=== PATIENT | female | born 1975 | race Caucasian/White ===

== ENCOUNTER 2022-03-30 14:30 | Emergency (ER) | payer OTHER ==
--- OUTSIDE RECORDS SUMMARY | 2022-03-30 14:32 | XMS REPORT | Continuity of Care Document ---
:1975 Author Organization [facility] t Address [address] [place] [address] Care Team Providers Name Role Phone Suly Maldonado Primary Care Physician [phone] Problems This patient has no known problems. Allergies, Adverse Reactions, Alerts Allergy Allergy Status Severity Reaction(s) Onset Inactive Treating Comm ents Source Name Type Date Date Clinician NSAIDs - Propensi Active 2021-04 CLASS ty to 1-17 adverse 00:00: reaction 00 to drug Medications Ordered Filled Start Stop Current Ordering Indication Dosage Frequency Signature Comments Components Source Medication Medication Date Date Medication? Clinician (SIG) Name Name TAKE 2021-04 No CAPSULE 2-12 EVERY 8 00:00: HOURS 00 DAILY. TAKE 1 TAB 2021-04 No AT BEDTIME 2-01 00:00: 00 TAKE 2021-04 No CAPSULE 1-21 EVERY 00:00: MORNING. 00 TAKE 2021-04 No 50 TABLET 1-17 DAILY. 00:00: 00 TAKE 2021-04 No CAPSULE 1-17 ONCE DAILY 00:00: IN THE 00 EVENING. TAKE 1 TAB 2021-04 No PO TID PRN 1-17 FOR ANXIETY 00:00: 00 TAKE 2021-04 No CAPSULE BY 0-06 MOUTH EVERY 00:00: 8 HOURS FOR 00 10 DAYS Vital Signs Vital Name Observation Time Observation Value Comments Source BP Systolic 2022-03-23 15:32:00 134 mm[Hg] BP Diastolic 2022-03-23 15:32:00 85 mm[Hg] Weight Measured 2022-03-23 15:32:00 264.00 pounds Height Measured 2022-03-23 15:32:00 68.00 inches Body Temperature 2022-03-23 15:32:00 98.30 degrees Heart Rate 2022-03-23 15:32:00 94.00 /min Respiratory Rate 2022-03-23 15:32:00 18.00 /min BP Systolic 2022-02-26 13:23:00 150 mm[Hg] BP Diastolic 2022-02-26 13:23:00 87 mm[Hg] Weight Measured 2022-02-26 13:23:00 259.20 pounds Height Measured 2022-02-26 13:23:00 68.00 inches Body Temperature 2022-02-26 13:23:00 98.10 degrees Heart Rate 2022-02-26 13:23:00 99.00 /min Respiratory Rate 2022-02-26 13:23:00 Procedures This patient has no known procedures. Plan of Care Planned Activity Planned Date Details Comments Source Goal Plan of Care Note [code = 48267-3] Goal Plan of Care Note [code = 03042-6] Goal Plan of Care Note [code = 88149-1] Goal Plan of Care Note [code = 36076-1] Goal Plan of Care Note [code = 31223-2] Goal Plan of Care Note [code = 12221-7] Goal Plan of Care Note [code = 47507-0] Goal Plan of Care Note [code = 72882-8] Encounters Start End Encounter Admission Attending Care Care Encounter Source Date/Time Date/Time Type Type Clinicians Facility Department ID 2022-03-23 2022-03-23 Outpatient [facility] Jose 15:17:41 15:17:41 F Tacos 2022-03-23 2022-03-23 Outpatient [id number] 00:00:00 00:00:00 Visit [id number] 2022-03-17 Outpatient [facility] Jose 08:57:25 08:57:25 F Tacos 2022-03-12 2022-03-12 Outpatient [facility] [id number] Jose 09:46:16 09:46:16 [id number] F Tacos Results Test Description Test Time Test Comments Results Result Comments Source CBC W/AUTO DIFF 2022-03-13 00:00:00 Test Item Value Reference Range Interpretation Comme nts WBC (test code = 1001) 9.1 K/UL RBC (test code = 1002) 5.46 M/UL HEMOGLOBIN (test code = 1003) 15.6 G/DL HEMATOCRIT (test code = 1004) 46.1 % MCV (test code = 1005) 84.4 fL MCH (test code = 1006) 28.6 PG MCHC (test code = 1007) 33.8 G/DL RDW (test code = 1038) 13.8 % NEUTROPHILS (test code = 1008) 65.7 % LYMPHOCYTES (test code = 1010) 24.9 % MONOCYTES (test code = 1011) 7.2 % EOSINOPHILS (test code = 1012) 1.5 % BASOPHILS (test code = 1013) 0.4 % IMMATURE GRANULOCYTES (test code = 1036) 0.3 % NUCLEATED RBCS (test code = 1065) 0.0 /100WBC'S PLATELET COUNT (test code = 1015) 355 K/UL ABSOLUTE NEUTROPHILS (test code = 1066) 5.94 K/UL ABSOLUTE LYMPHOCYTES (test code = 1067) 2.26 K/UL ABSOLUTE MONOCYTES (test code = 1068) 0.65 K/UL ABSOLUTE EOSINOPHILS (test code = 1040) 0.14 K/UL ABSOLUTE BASOPHILS (test code = 1069) 0.04 K/UL ABS IMMATURE GRANULOCYTES (test code = 1020) 0.03 K/UL ABS NUCLEATED RBCS (test code = 69699) 0.00 K/UL CBC W/AUTO [id number] 00:00:00 Test Item Value Reference Range Interpretation Comments WBC (test code = 1001) 9.1 K/UL RBC (test code = 1002) 5.46 M/UL HEMOGLOBIN (test code = 1003) 15.6 G/DL HEMATOCRIT (test code = 1004) 46.1 % MCV (test code = 1005) 84.4 fL MCH (test code = 1006) 28.6 PG MCHC (test code = 1007) 33.8 G/DL RDW (test code = 1038) 13.8 % NEUTROPHILS (test code = 1008) 65.7 % LYMPHOCYTES (test code = 1010) 24.9 % MONOCYTES (test code = 1011) 7.2 % EOSINOPHILS (test code = 1012) 1.5 % BASOPHILS (test code = 1013) 0.4 % IMMATURE GRANULOCYTES (test 0.3 % code = 1036) NUCLEATED RBCS (test code = 0.0 /100WBC'S 1065) PLATELET COUNT (test code = 355 K/UL 1015) ABSOLUTE NEUTROPHILS (test code 5.94 K/UL = 1066) ABSOLUTE LYMPHOCYTES (test code 2.26 K/UL = 1067) ABSOLUTE MONOCYTES (test code = 0.65 K/UL 1068) ABSOLUTE EOSINOPHILS (test code 0.14 K/UL = 1040) ABSOLUTE BASOPHILS (test code = 0.04 K/UL 1069) ABS IMMATURE GRANULOCYTES (test 0.03 K/UL code = 1020) ABS NUCLEATED RBCS (test code = 0.00 K/UL 51259) CBC W/AUTO [id number] 00:00:00 Test Item Value Reference Range Interpretation Comments WBC (test code = 1001) 9.1 K/UL RBC (test code = 1002) 5.46 M/UL HEMOGLOBIN (test code = 1003) 15.6 G/DL HEMATOCRIT (test code = 1004) 46.1 % MCV (test code = 1005) 84.4 fL MCH (test code = 1006) 28.6 PG MCHC (test code = 1007) 33.8 G/DL RDW (test code = 1038) 13.8 % NEUTROPHILS (test code = 1008) 65.7 % LYMPHOCYTES (test code = 1010) 24.9 % MONOCYTES (test code = 1011) 7.2 % EOSINOPHILS (test code = 1012) 1.5 % BASOPHILS (test code = 1013) 0.4 % IMMATURE GRANULOCYTES (test 0.3 % code = 1036) NUCLEATED RBCS (test code = 0.0 /100WBC'S 1065) PLATELET COUNT (test code = 355 K/UL 1015) ABSOLUTE NEUTROPHILS (test code 5.94 K/UL = 1066) ABSOLUTE LYMPHOCYTES (test code 2.26 K/UL = 1067) ABSOLUTE MONOCYTES (test code = 0.65 K/UL 1068) ABSOLUTE EOSINOPHILS (test code 0.14 K/UL = 1040) ABSOLUTE BASOPHILS (test code = 0.04 K/UL 1069) ABS IMMATURE GRANULOCYTES (test 0.03 K/UL code = 1020) ABS NUCLEATED RBCS (test code = 0.00 K/UL 19238) HEMOGLOBIN [id number] 00:00:00 Test Item Value Reference Range Interpretation Comments HEMOGLOBIN A1c (test code = 90621) 5.5 % HEMOGLOBIN [id number] 00:00:00 Test Item Value Reference Range Interpretation Comments HEMOGLOBIN A1c (test code = 57063) 5.5 % HEMOGLOBIN [id number] 00:00:00 Test Item Value Reference Range Interpretation Comments HEMOGLOBIN A1c (test code = 92862) 5.5 % LIPID [id number] 00:00:00 Test Item Value Reference Range Interpretation Comments CHOLESTEROL (test code = 2210) 262 MG/DL TRIGLYCERIDES (test code = 2232) 196 MG/DL HDL CHOLESTEROL (test code = 2220) 36 MG/DL CALC LDL CHOL (test code = 2237) 188 MG/DL RISK RATIO LDL/HDL (test code = 5.22 RATIO 2238) LIPID [id number] 00:00:00 Test Item Value Reference Range Interpretation Comments CHOLESTEROL (test code = 2210) 262 MG/DL TRIGLYCERIDES (test code = 2232) 196 MG/DL HDL CHOLESTEROL (test code = 2220) 36 MG/DL CALC LDL CHOL (test code = 2237) 188 MG/DL RISK RATIO LDL/HDL (test code = 5.22 RATIO 2238) COMPREHENSIVE METABOLIC [id number] 00:00:00 Test Item Value Reference Range Interpretation Comments GLUCOSE (test code = 2217) 92 MG/DL BUN (test code = 2208) 11 MG/DL CREATININE (test code = 2214) 0.86 MG/DL eGFR (2020 CKD-EPI) (test code 85 ML/MIN/1.73 = 98170) CALC BUN/CREAT (test code = 13 RATIO 2235) SODIUM (test code = 2231) 141 MEQ/L POTASSIUM (test code = 2228) 4.4 MEQ/L CHLORIDE (test code = 2215) 107 MEQ/L CARBON DIOXIDE (test code = 22 MEQ/L 2205) CALCIUM (test code = 2209) 10.0 MG/DL PROTEIN, TOTAL (test code = 7.2 G/DL 2228) ALBUMIN (test code = 2201) 4.3 G/DL CALC GLOBULIN (test code = 2.9 G/DL 2239) CALC A/G RATIO (test code = 1.5 RATIO 2234) BILIRUBIN, TOTAL (test code = 0.3 MG/DL 2206) ALKALINE PHOSPHATASE (test 101 U/L code = 2204) AST (test code = 2218) 16 U/L ALT (test code = 2219) 16 U/L COMPREHENSIVE METABOLIC [id number] 00:00:00 Test Item Value Reference Range Interpretation Comments GLUCOSE (test code = 2217) 92 MG/DL BUN (test code = 2208) 11 MG/DL CREATININE (test code = 2214) 0.86 MG/DL eGFR (2020 CKD-EPI) (test code 85 ML/MIN/1.73 = 43130) CALC BUN/CREAT (test code = 13 RATIO 2235) SODIUM (test code = 2231) 141 MEQ/L POTASSIUM (test code = 2228) 4.4 MEQ/L CHLORIDE (test code = 2215) 107 MEQ/L CARBON DIOXIDE (test code = 22 MEQ/L 2205) CALCIUM (test code = 2209) 10.0 MG/DL PROTEIN, TOTAL (test code = 7.2 G/DL 2228) ALBUMIN (test code = 2201) 4.3 G/DL CALC GLOBULIN (test code = 2.9 G/DL 224) CALC A/G RATIO (test code = 1.5 RATIO 4) BILIRUBIN, TOTAL (test code = 0.3 MG/DL 2206) ALKALINE PHOSPHATASE (test 101 U/L code = 2204) AST (test code = 2218) 16 U/L ALT (test code = 2219) 16 U/L TSH, THIRD [id number] 00:00:00 Test Item Value Reference Range Interpretation Comments TSH, THIRD GENERATION (test code 1.150 UIU/ML = 2821) TSH, THIRD [id number] 00:00:00 Test Item Value Reference Range Interpretation Comments TSH, THIRD GENERATION (test code 1.150 UIU/ML = 2821) TSH, THIRD [id number] 00:00:00 Test Item Value Reference Range Interpretation Comments TSH, THIRD GENERATION (test code 1.150 UIU/ML = 2821)
[2022-03-30 15:03] LABS: Absolute Lymphocytes (CBC) 3.1 K/uL (0.7-4.9); Hematocrit 41.2 % (36.0-45.0); Lymphocytes % 27.8 % (15.3-44.8); MCV 84.7 fL (80-100); MPV 6.8 fL (7.6-11.3); RBC Red Blood Cell Count 4.86 M/uL (3.86-4.86)
[2022-03-30 15:23] LABS: Potassium 4.1 mmol/L (3.5-5.1)
[2022-03-30 15:39] LABS: SARS-COV-2 RT PCR NEGATIVE (NEGATIVE)
--- NOTE | 2022-03-30 15:54 | RAD REPORT ---
EXAM DESCRIPTION: Tatyana Single View03/30/2022 3:21 pm CLINICAL HISTORY: Cough COMPARISON: none FINDINGS: The left base is hazy. The remainder of the lungs appear clear of acute infiltrate. The he art is normal size IMPRESSION: Left base is hazy probably secondary to overlying soft tissue. An infiltrate can have th is appearance but is probably less likely. PA and lateral chest series recommended
--- NOTE | 2022-03-30 16:43 | RAD REPORT ---
EXAM DESCRIPTION: Tatyana Pa And Lat (2 Views)03/30/2022 4:31 pm CLINICAL HISTORY: Cough COMPARISON: March 30, 2022 FINDINGS: Left lung base is clear. The lungs appear clear of acute infiltrate. The heart is normal size IMPRESSION: No acute abnormalities displayed
--- NOTE | 2022-03-30 17:25 | EDPHYS ---
Physician Documentation [facility] Name: Dayami Pisano Age: 46 yrs Sex: Female : 1975 Arrival Date: 03/30/2022 Time: 14:32 Bed 20 Private MD: ED Physician Minesh Norman HPI: 03/30 18:45 This 46 yrs old Female presents to ER via Ambulatory with complaints of Cough, Chest kb Pain, Arm Pain. 18:45 The patient or guardian reports cough, that is intermittent, described as moderate, flu kb symptoms, arthralgias, myalgias. Onset: The symptoms/episode began/occurred 3 week(s) ago. Severity of symptoms: At their worst the symptoms were moderate, in the emergency department the symptoms are unchanged. Modifying factors: The symptoms are alleviated by nothing, the symptoms are aggravated by nothing. Associated signs and symptoms: Pertinent positives: chest pain, rhinorrhea. The patient has not experienced similar symptoms in the past. The patient has been recently seen by a physician: the patient's primary care provider, with similar presenting complaints, given steroids, but the patient's symptoms have persisted. 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 - Social history:: Smoking status: Patient reports the use of cigarette tobacco products, smokes one-half pack cigarettes per day. ROS: 18:44 Abdomen/GI: Negative for abdominal pain, nausea, vomiting, diarrhea, and constipation. kb 18:44 Constitutional: Positive for body aches, malaise. 18:44 ENT: Positive for sinus congestion. 18:44 Cardiovascular: Positive for chest pain. 18:44 Respiratory: Positive for cough, Negative for dyspnea on exertion, hemoptysis, orthopnea, pleurisy, shortness of breath, sputum production, wheezing. 18:44 All other systems are negative. Exam: 14:55 Constitutional: This is a well developed, well nourished patient who is awake, alert, kb and in no acute distress. Head/Face: Normocephalic, atraumatic. ENT: Moist Mucous membranes Cardiovascular: Regular rate and rhythm with a normal S1 and S2. No gallops, murmurs, or rubs. No pulse deficits. Respiratory: Respirations even and unlabored. No increased work of breathing. Talking in full sentences Abdomen/GI: Soft, non-tender. No distention Skin: Warm, dry with normal turgor. Normal color. MS/ Extremity: Pulses equal, no cyanosis. Neurovascular intact. Full, normal range of motion. Neuro: Awake and alert, GCS 15, oriented to person, place, time, and situation. Moves all extremities. Normal gait. Psych: Awake, alert, with orientation to person, place and time. Behavior, mood, and affect are within normal limits. 14:55 ECG was reviewed by the Attending Physician. Vital Signs: 14:40 BP 144 / 91; Pulse 96; Resp 18; Temp 98.6; Pulse Ox 98% on R/A; Weight 117.93 kg; jh5 Height 5 ft. 8 in. (172.72 cm); Pain 5/10; 15:45 BP 142 / 81; Pulse 84; Resp 16; Pulse Ox 100% on R/A; hb 14:40 Body Mass Index 39.53 (117.93 kg, 172.72 cm) 5 MDM: 14:38 Patient medically screened. kb 16:57 Data reviewed: vital signs, nurses notes. Data interpreted: Pulse oximetry: on room air kb is 100 %. Interpretation: normal. Counseling: I had a detailed discussion with the patient and/or guardian regarding: the historical points, exam findings, and any diagnostic results supporting the discharge/admit diagnosis, lab results, radiology results, the need for outpatient follow up, a family practitioner, to return to the emergency department if symptoms worsen or persist or if there are any questions or concerns that arise at home. 18:43 ED course: Pt has history of COPD and asthma, as well as smokes cigarettes. Will kb prescribe antibiotics. . 03/30 14:44 Order name: CBC with Diff; Complete Time: 15:09 kb 03/30 14:44 Order name: BMP; Complete Time: 15:29 kb 03/30 14:44 Order name: Troponin High Sensitivity; Complete Time: 15:29 kb 03/30 14:44 Order name: Chest Single View XRAY; Complete Time: 16:06 kb 03/30 14:44 Order name: COVID-19/FLU A+B; Complete Time: 15:43 kb 03/30 14:55 Order name: D-Dimer; Complete Time: 15:18 kb 03/30 14:44 Order name: IV Start; Complete Time: 14:53 kb 03/30 14:44 Order name: EKG; Complete Time: 14:44 kb 03/30 14:44 Order name: EKG - Nurse/Tech; Complete Time: 14:53 kb 03/30 16:07 Order name: Chest Pa And Lat (2 Views) XRAY; Complete Time: 16:57 kb EC:55 Rate is 102 beats/min. Rhythm is regular. QRS [place] is Normal. NC interval is normal at kb 146 msec. QRS interval is normal at 92 msec. QT interval is normal at 461 msec. Administered Medications: No medications were administered Disposition: 22:03 Co-signature as Attending Physician, Minesh MORALES was immediately available on-site ms3 in the Emergency Department for consultation in the care of the patient. . Disposition Summary: 03/30/22 17:25 Discharge Ordered Location: Home kb Condition: Stable kb Diagnosis - Cough kb - Fever, unspecified kb Followup: kb - With: Emergency Department - When: As needed - Reason: Worsening of condition Followup: kb - With: Private Physician - When: 2 - 3 days - Reason: Recheck today's complaints, Continuance of care, Re-evaluation by your physician Discharge Instructions: - Discharge Summary Sheet kb - Acute Bronchitis, Adult, [id number] kb - Cough, Adult, [id number]-[id number] kb Forms: - Medication Reconciliation Form kb - Thank You Letter kb - Antibiotic Education kb - Prescription Opioid Use kb Prescriptions: - Zithromax 500 mg Oral Tablet - take 1 tablet by ORAL route once daily for 5 days; 5 tablet; Refills: 0, kb Product Selection Permitted Signatures: Dispatcher [employer] Leah Pandya FNP-C FNP-Minesh Meraz DO DO ms3 Yodit Alvarado RN RN 5 Corrections: (The following items were deleted from the chart) 14:44 14:43 Allergies: No Known Allergies; [place] [id number] 18:45 18:44 ENT: Positive for sinus congestion, kb kb
--- NOTE | 2022-03-30 17:25 | ER ---
Nurse's Notes [facility] Name: Dayami Pisano Age: 46 yrs Sex: Female : 1975 Arrival Date: 03/30/2022 Time: 14:32 Bed 20 Private MD: Diagnosis: Cough;Fever, unspecified Presentation: 03/30 14:40 Chief complaint: Patient states: sick x3 weeks with cough, tickle in throat, body aches jh5 all over my joints. I have coughing fits. My arms have been so heavy and today I am having chest pains. I have been to the [facility], yogesh been on prednisone for 7 days and I am not any better. Coronavirus screen: Vaccine status: Patient reports receiving the 1st dose of the Covid vaccine. Client denies travel out of the [place] in the last 14 days. Ebola Screen: Patient negative for fever greater than or equal to 101.5 degrees Fahrenheit, and additional compatible Ebola Virus Disease symptoms Patient denies exposure to infectious person. Patient denies travel to an Ebola-affected area in the 21 days before illness onset. Initial Sepsis Screen: Does the patient meet any 2 criteria? No. Patient's initial sepsis screen is negative. Does the patient have a suspected source of infection? No. Patient's initial sepsis screen is negative. Risk Assessment: Do you want to hurt yourself or someone else? Patient reports no desire to harm self or others. Onset of symptoms was March 30, 2022. 14:40 Method Of Arrival: Ambulatory [facility] 14:40 Acuity: VERONICA 3 jh5 Triage Assessment: 14:43 General: Appears uncomfortable, obese, unkempt, Behavior is calm, cooperative, jh5 appropriate for age. Pain: Complains of pain in chest. Cardiovascular: Reports chest pain. 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 - Social history:: Smoking status: Patient reports the use of cigarette tobacco products, smokes one-half pack cigarettes per day. Screenin:57 [facility] ED Fall Risk Assessment (Adult) Score/Fall Risk Level 0 - 2 = Low Risk. Abuse hb screen: Denies threats or abuse. Denies injuries from another. Nutritional screening: No deficits noted. Tuberculosis screening: No symptoms or risk factors identified. Fall Risk Total Mann Fall Scale indicates No Risk (0-24 pts). 14:57 [facility] ED Fall Risk Assessment (Adult) Score/Fall Risk Level 0 - 2 = Low Risk hb Oriented to surroundings, Maintained a safe environment. 17:35 Humpty Dumpty Scale Fall Assessment Tool (age< 18yrs) Fall Risk Score/ Level. em6 Assessment: 15:10 General: Appears in no apparent distress. Behavior is calm, cooperative. Pain: Pain hb currently is 5 out of 10 on a pain scale. Neuro: Level of Consciousness is awake, alert, obeys commands, Oriented to person, place, time, situation. Cardiovascular: Patient's skin is warm and dry. Respiratory: Respiratory effort is even, unlabored, Respiratory pattern is regular, symmetrical. GI: No signs and/or symptoms were reported involving the gastrointestinal system. : No signs and/or symptoms were reported regarding the genitourinary system. EENT: No signs and/or symptoms were reported regarding the EENT system. Derm: Skin is pink, warm \T\ dry. Musculoskeletal: No signs and/or symptoms reported regarding the musculoskeletal system. 15:56 Reassessment: Patient appears in no apparent distress at this time. Patient and/or hb family updated on plan of care and expected duration. Pain level reassessed. Patient is alert, oriented x 3, equal unlabored respirations, skin warm/dry/pink. 16:10 Reassessment: Patient appears in no apparent distress at this time. Patient and/or em6 family updated on plan of care and expected duration. Pain level reassessed. Patient is alert, oriented x 3, equal unlabored respirations, skin warm/dry/pink. 17:10 Reassessment: Patient appears in no apparent distress at this time. Patient and/or em6 family updated on plan of care and expected duration. Pain level reassessed. Patient is alert, oriented x 3, equal unlabored respirations, skin warm/dry/pink. Vital Signs: 14:40 BP 144 / 91; Pulse 96; Resp 18; Temp 98.6; Pulse Ox 98% on R/A; Weight 117.93 kg; [facility] Height 5 ft. 8 in. (172.72 cm); Pain 5/10; 15:45 BP 142 / 81; Pulse 84; Resp 16; Pulse Ox 100% on R/A; hb 14:40 Body Mass Index 39.53 (117.93 kg, 172.72 cm) [facility] ED Course: 14:32 Patient arrived in ED. as 14:32 Leah Orellana FNP-C [facility]. kb 14:32 Minesh Norman DO is Attending Physician. kb 14:43 Triage completed. [facility] 14:43 Arm band placed on right wrist. [facility] 14:53 COVID-19/FLU A+B Sent. [facility] 14:53 Troponin High Sensitivity Sent. [facility] 14:53 BMP Sent. [facility] 14:54 CBC with Diff Sent. [facility] 14:57 Alina Edmond, RN is Primary Nurse. hb 15:21 Patient has correct armband on for positive identification. hb 15:23 Chest Single View XRAY In Process Unspecified. EDMS 16:33 Chest Pa And Lat (2 Views) XRAY In Process Unspecified. EDMS 17:35 No provider procedures requiring assistance completed. IV discontinued, intact, em6 bleeding controlled, No redness/swelling at site. Pressure dressing applied. Administered Medications: No medications were administered Medication: 15:21 VIS not applicable for this client. hb Outcome: 17:25 Discharge ordered by MD. kb 17:35 Discharged to home ambulatory. em6 17:35 Condition: stable 17:35 Discharge instructions given to patient, Instructed on discharge instructions, follow up and referral plans. medication usage, Demonstrated understanding of instructions, follow-up care, medications, Prescriptions given X 1. 17:35 Patient left the ED. em6 Signatures: Dispatcher [employer] EDKY Leah Orellana FNP-C FNP-Jelly Liang as Alina Edmond, RN RN hb Yodit Alvarado RN RN [facility] Gauri Sanchez RN RN em6 Corrections: (The following items were deleted from the chart) 14:44 14:43 Allergies: No Known Allergies; [place] [id number] 15:57 13:45 BP 138 / 86; Pulse 84bpm; Resp 16bpm; Pulse Ox 100% RA; hb hb
[2022-03-30 17:50] VITALS: TEMP 98.6
[2022-03-30 17:51] VITALS: BP 142/81; O2SAT 100
--- NOTE | 2022-04-01 14:01 | EKG ---
Test Date: 2022-03-30 Test Time: 14:47:00 Military Technician: JR Velez MEASUREMENT RESULTS: Intervals: Rate: 102 [place]: 146 QRSD: 92 QT: 354 QTc: 461 [place]: P: 57 [place]: 146 QRS: 54 T: 53 INTERPRETIVE STATEMENTS: Sinus tachycardia Incomplete right bundle branch block Borderline ECG No previous ECG available for comparison Electronically Signed On 04-01-22 13:59:51 GEOGRAPHIC INFORMATION SCIENTIST by Adithya Santana
== END 2022-03-30 17:35 | disposition home or self-care (01) ==
LOC: ER 14:30
DX: R05.9 Cough, unspecified (principal); R50.9 Fever, unspecified; R07.9 Chest pain, unspecified; F17.210 Nicotine dependence, cigarettes, uncomplicated; Z88.0 Allergy status to penicillin; Z88.1 Allergy status to other antibiotic agents; Z88.5 Allergy status to narcotic agent; Z88.6 Allergy status to analgesic agent; Z20.822 Contact with and (suspected) exposure to COVID-19
CPT/HCPCS: 93005; 85025; 80048; 36415; 85379; 84484; 0240U; 71045; 71046; 99283

== ENCOUNTER 2022-08-26 13:31 | Emergency (ER) | payer OTHER ==
--- OUTSIDE RECORDS SUMMARY | 2022-08-26 13:35 | XMS REPORT | Continuity of Care Document ---
:1975 Author Organization [facility] t Address [address] [facility] 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 [...] TAKE 1 TAB 2021-04 No AT BEDTIME 2- 00:00: 00 TAKE 2021-04 No CAPSULE 1-21 [...] Goal Plan of Care Note [code = 72066-9] Goal Plan of Care Note [code = 69588-1] Goal Plan of Care Note [code = 81949-0] Goal Plan of Care Note [code = 62336-3] Goal Plan of Care Note [code = 37983-9] Goal Plan of Care Note [code = 73169-8] Goal Plan of Care Note [code = 07654-5] Goal Plan of Care Note [code = 56706-2] Encounters Start End Encounter Admission Attending Care Care Encounter Source Date/Time Date/Time Type Type Clinicians Facility Department ID 2022-07-15 2022-07-15 Outpatient GRACIE GODDARD [id number] Gracie 08:30:00 08:30:00 KAZ garcia 2022-04-23 2022-04-23 Outpatient SFA SFA [id number] Jose 11:21:09 11:21:09 [id number] F Tacos 2022-03-23 2022-03-23 Outpatient SFA SFA [id number] Jose 15:17:41 15:17:41 [id number] F Tacos 2022-03-23 2022-03-23 Outpatient [id number] 00:00:00 00:00:00 Visit ccd6-43d4 [id number] 2320-12-06 2022-03-17 Outpatient [facility] [id number] Jose 08:57:25 08:57:25 [id number] F Tacos 2022-03-12 2022-03-12 Outpatient [facility] [id number] Jose 09:46:16 09:46:16 [id number] F Tacos Results Test Description Test Time [...] K/UL ABS NUCLEATED RBCS (test code = 68464) 0.00 K/UL CBC W/AUTO [id number] 00:00:00 Test Item Value Reference Range Interpretation [...] NUCLEATED RBCS (test code = 0.00 K/UL 81440) CBC W/AUTO [id number] 00:00:00 Test Item Value Reference Range Interpretation [...] NUCLEATED RBCS (test code = 0.00 K/UL 62684) HEMOGLOBIN [id number] 00:00:00 Test Item Value Reference Range Interpretation Comments HEMOGLOBIN A1c (test code = 01521) 5.5 % HEMOGLOBIN [id number] 00:00:00 Test Item Value Reference Range Interpretation Comments HEMOGLOBIN A1c (test code = 83552) 5.5 % HEMOGLOBIN [id number] 00:00:00 Test Item Value Reference Range Interpretation Comments HEMOGLOBIN A1c (test code = 16175) 5.5 % LIPID [id number] 00:00:00 Test Item Value Reference Range Interpretation Comments CHOLESTEROL (test code = 2210) 262 MG/DL TRIGLYCERIDES (test code = 2232) 196 MG/DL HDL CHOLESTEROL (test code = 2220) 36 MG/DL CALC LDL CHOL (test code = 2237) 188 MG/DL RISK RATIO LDL/HDL (test code = 5.22 RATIO 2238) LIPID [id number] 00:00:00 Test Item Value Reference Range Interpretation Comments CHOLESTEROL (test code = 2210) 262 MG/DL TRIGLYCERIDES (test code = 2232) 196 MG/DL HDL CHOLESTEROL (test code = 2220) 36 MG/DL CALC LDL CHOL (test code = 2237) 188 MG/DL RISK RATIO LDL/HDL (test code = 5.22 RATIO 2238) COMPREHENSIVE METABOLIC [id number] 00:00:00 Test Item Value Reference Range Interpretation Comments GLUCOSE (test code = 2217) 92 MG/DL BUN (test code = 2208) 11 MG/DL CREATININE (test code = 2214) 0.86 MG/DL eGFR (2020 CKD-EPI) (test code 85 ML/MIN/1.73 = 09075) CALC BUN/CREAT (test code = 13 RATIO 2235) SODIUM (test code = 2231) 141 MEQ/L POTASSIUM (test code = 2228) 4.4 MEQ/L CHLORIDE (test code = 2215) 107 MEQ/L CARBON DIOXIDE (test code = 22 MEQ/L 2206) CALCIUM (test code = 2209) 10.0 MG/DL PROTEIN, TOTAL (test code = 7.2 G/DL 2228) ALBUMIN (test code = 2201) 4.3 G/DL CALC GLOBULIN (test code = 2.9 G/DL 2240) CALC A/G RATIO (test code = 1.5 RATIO 2234) BILIRUBIN, TOTAL (test code = 0.3 MG/DL 2206) ALKALINE PHOSPHATASE (test 101 U/L code = 2204) AST (test code = 2218) 16 U/L ALT (test code = 2219) 16 U/L COMPREHENSIVE METABOLIC [id number] 00:00:00 Test Item Value Reference Range Interpretation Comments GLUCOSE (test code = 7) 92 MG/DL BUN (test code = 2208) 11 MG/DL CREATININE (test code = 2214) 0.86 MG/DL eGFR (2020 CKD-EPI) (test code 85 ML/MIN/1.73 = 06224) CALC BUN/CREAT (test code = 13 RATIO [...] CALC GLOBULIN (test code = 2.9 G/DL 2240) CALC A/G RATIO (test code = 1.5 RATIO 2234) BILIRUBIN, TOTAL (test code = 0.3 MG/DL 2206) ALKALINE PHOSPHATASE (test 101 U/L code = 2204) AST (test code = 2218) 16 U/L ALT (test code = 2219) 16 U/L TSH, THIRD [id number] 00:00:00 Test Item Value Reference Range Interpretation Comments TSH, THIRD GENERATION (test code 1.150 UIU/ML = 2821) TSH, THIRD [id number] 00:00:00 Test Item Value Reference Range Interpretation Comments TSH, THIRD GENERATION (test code 1.150 UIU/ML = 2821) TSH, THIRD [id number] 00:00:00 Test Item Value Reference Range Interpretation Comments TSH, THIRD GENERATION (test code 1.150 UIU/ML = 2821)
--- NOTE | 2022-08-26 14:57 | RAD REPORT ---
EXAM DESCRIPTION: RAD - Shoulder Left 2 View - 08/26/2022 2:27 pm CLINICAL HISTORY: PAIN COMPARISON: Chest Single View dated 03/15/2022; Chest Pa And Lat (2 Views) dated 01/23/2021; Chest Pa And Lat (2 Views) dated 05/03/2019; Chest Pa And Lat (2 Views) dated 04/14/2019No comparisons TECHNIQUE: Internal and external rotation views of the left shoulder were obtained. FINDINGS: There is no fracture or dislocation. AC joint is normal in appearance. Curvilinear contour of the glenoid cavity, could relate to moderate degenerative changes, given the projection which cristobal ges were acquired. This is not well assessed. No other acute or suspicious findings. IMPRESSION: No findings of an acute osseus abnormality. Nonspecific curvilinear contour of the lumen cavity, could relate to degenerative changes, not well evaluated.
[2022-08-26] MEDS ORDERED: DIAZEPAM 5 MG TABLET ONE (15:13)
[2022-08-26] MEDS ORDERED: KETOROLAC 30 MG/ML INJ ONE (15:13)
[2022-08-26] MEDS ORDERED: dexAMETHasone 10 MG/ML VIAL ONE (15:13)
--- NOTE | 2022-08-26 15:41 | EDPHYS ---
Physician Documentation [facility] Name: Dayami Pisano Age: 46 yrs Sex: Female : 1975 Arrival Date: 08/26/2022 Time: 13:31 Bed 9 Private MD: HOME Physician Andrea Salas STATISTICAL ANALYST: 08/26 15:30 LMP N/A - control method mb9 Historical: - Allergies: 14:01 Augmentin; nj1 14:01 Bactrim; nj1 14:01 codeine sulfate; nj1 14:01 Ibuprofen; nj1 14:01 Morphine; nj1 14:01 NSAIDS; nj1 14:01 PENICILLINS; nj1 - PMHx: 14:01 Hypertensive disorder; Endometrosis; Sleep apnea; Depressive disorder; Bipolar disorder;nj1 14:03 PTSD; nj1 - PSHx: 14:01 Hysterectomy; nj1 - Immunization history:: Client reports receiving the 1st dose of the Covid vaccine. - Social history:: Smoking status: Patient reports the use of cigarette tobacco products, smokes one pack cigarettes per day. Vital Signs: 13:58 BP 141 / 97; Pulse 103; Resp 18; Temp 97.9(TE); Pulse Ox 98% ; Weight 113.4 kg; Height nj1 5 ft. 7 in. ; Pain 10/10; 15:48 BP 138 / 89; Pulse 98; Resp 16; Pulse Ox 99% on R/A; mb9 13:58 Body Mass Index 39.16 (113.40 kg, 170.18 cm) [facility] 13:58 Pain Scale: Adult [facility] MDM: 13:55 Patient medically screened. [facility] 08/26 13:55 Order name: Shoulder Left (2 View) XRAY; Complete Time: 15:04 [facility] 08/26 15:28 Order name: Sling; Complete Time: 15:30 [facility] Administered Medications: 15:12 Drug: Ketorolac IM 30 mg Route: IM; Site: right gluteus; mb9 15:28 Follow up: Response: No adverse reaction mb9 15:12 Drug: Dexamethasone IM 10 mg Route: IM; Site: left gluteus; mb9 15:28 Follow up: Response: No adverse reaction 9 15:12 Drug: Diazepam PO 5 mg Route: PO; mb9 15:28 Follow up: Response: No adverse reaction mb9 Disposition Summary: 08/26/22 15:40 Discharge Ordered Location: Home [facility] Condition: Stable [facility] Diagnosis - Other sprain of left shoulder joint [facility] Followup: [facility] - With: Nii Nataarjan MD - When: 2 - 3 days - Reason: Recheck today's complaints, Continuance of care, Re-evaluation by your physician Discharge Instructions: - Discharge Summary Sheet [facility] - Shoulder Pain [facility] Forms: - Medication Reconciliation Form [facility] - Thank You Letter [facility] - Antibiotic Education [facility] - Prescription Opioid Use [facility] Prescriptions: - metoprolol ta-hydrochlorothiaz 50-25 mg Oral tablet - take 1 tablet by ORAL route daily; 30 tablet; Refills: 0, Product Selection [facility] Permitted - Prednisone 20 mg Oral Tablet - take 3 tablets by ORAL route once daily for 5 days; 15 tablet; Refills: 0, [facility] Product Selection Permitted - orphenadrine citrate 100 mg Oral Tablet Sustained Release - take 1 tablet by ORAL route 2 times per day As needed; 20 tablet; Refills: 0, [facility] Product Selection Permitted Signatures: Dispatcher [employer] Tirso Nielson PA PA jmm Breneman, Mary Beth, RN RN mb9 Janny Crabtree RN RN nj1
--- NOTE | 2022-08-26 15:41 | ER ---
Nurse's Notes [facility] Name: Dayami Pisano Age: 46 yrs Sex: Female : 1975 Arrival Date: 08/26/2022 Time: 13:31 Bed 9 Private MD: Diagnosis: Other sprain of left shoulder joint Presentation: 08/26 13:58 Chief complaint: Patient states: Left shoulder/upper arm pain since Wednesday when "I lift nj1 something heavy from back seat". Pain getting worse. Has tried OTC medications with no relief. Took tylenol this am. Coronavirus screen: Vaccine status: Patient reports receiving the 1st dose of the Covid vaccine. Ebola Screen: Patient denies travel to an Ebola-affected area in the 21 days before illness onset. Initial Sepsis Screen: Does the patient meet any 2 criteria? HR > 90 bpm. No. Patient's initial sepsis screen is negative. Does the patient have a suspected source of infection? No. Patient's initial sepsis screen is negative. Risk Assessment: Do you want to hurt yourself or someone else? Patient reports no desire to harm self or others. Onset of symptoms was August 23, 2022. 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 - Social history:: Smoking status: Patient reports the use of cigarette tobacco products, smokes one pack cigarettes per day. Screenin:28 [facility] ED Fall Risk Assessment (Adult) History of falling in the last 3 months, mb9 including since admission No falls in past 3 months (0 pts) Confusion or Disorientation No (0 pts) Intoxicated or Sedated No (0 pts) Impaired Gait No (0 pts) Mobility Assist Device Used No (0 pt) Altered Elimination No (0 pt) Score/Fall Risk Level 0 - 2 = Low Risk Oriented to surroundings, Maintained a safe environment, Educated pt \\T\\ family on fall prevention, incl call for assistance when getting out of bed. Abuse screen: Denies threats or abuse. Nutritional screening: No deficits noted. Tuberculosis screening: No symptoms or risk factors identified. Assessment: 15:29 General: Appears uncomfortable. Pain: Complains of pain in left shoulder Pain currently mb9 is 10 out of 10 on a pain scale. Quality of pain is described as throbbing, Pain began gradually, Is continuous. Neuro: Level of Consciousness is awake, alert, obeys commands, Oriented to person, place, time, situation, Appropriate for age. Respiratory: Airway is patent Respiratory effort is even, unlabored, Respiratory pattern is regular, symmetrical. Derm: Skin is pink, warm \\T\\ dry. Musculoskeletal: Range of motion: limited in left shoulder. Vital Signs: 13:58 BP 141 / 97; Pulse 103; Resp 18; Temp 97.9(TE); Pulse Ox 98% ; Weight 113.4 kg; Height nj1 5 ft. 7 in. ; Pain 10/10; 15:48 BP 138 / 89; Pulse 98; Resp 16; Pulse Ox 99% on R/A; mb9 13:58 Body Mass Index 39.16 (113.40 kg, 170.18 cm) nm1 13:58 Pain Scale: Adult [facility] ED Course: 13:34 Patient arrived in ED. mr 13:47 Tirso Michelle PA is PHCP. [facility] 13:47 Andrea Salas MD is Attending Physician. m 14:01 Triage completed. nj1 14:03 Arm band placed on right wrist. nj1 14:28 Shoulder Left (2 View) XRAY In Process Unspecified. EDMS 14:39 Agustina Aguillon RN is Primary Nurse. mb9 15:28 Placed in gown. Bed in low position. Call light in reach. Side rails up X 1. Client mb9 placed on continuous cardiac and pulse oximetry monitoring. NIBP monitoring applied. 15:29 No provider procedures requiring assistance completed. mb9 15:40 Nii Natarajan MD is Referral Physician. [facility] 15:49 Patient did not have IV access during this emergency room visit. mb9 Administered Medications: 15:12 Drug: Ketorolac IM 30 mg Route: IM; Site: right gluteus; mb9 15:28 Follow up: Response: No adverse reaction mb9 15:12 Drug: Dexamethasone IM 10 mg Route: IM; Site: left gluteus; mb9 15:28 Follow up: Response: No adverse reaction mb9 15:12 Drug: Diazepam PO 5 mg Route: PO; mb9 15:28 Follow up: Response: No adverse reaction mb9 Medication: 15:29 VIS not applicable for this client. mb9 Outcome: 15:40 Discharge ordered by . lazaro 15:49 Discharged to home ambulatory. mb9 15:49 Condition: stable 15:49 Discharge instructions given to patient, Instructed on discharge instructions, follow up and referral plans. Demonstrated understanding of instructions, follow-up care, medications, Prescriptions given X 3. 16:04 Patient left the ED. mb9 Signatures: Dispatcher [employer] EDMS Tirso Michelle PA PA jmm Rivera, Mary Raquellashawn, Agustina Jorge, RN RN mb9 Janny Crabtree RN RN nj1 Corrections: (The following items were deleted from the chart) 14:04 13:58 Pulse 103bpm; Resp 18bpm; Pulse Ox 98%; Temp 97.9F Temporal; 113.4 kg; Height 5 nj1 ft. 7 in.; BMI: 39.1; Pain 10, Adult; nj1
[2022-08-26 17:25] VITALS: TEMP 97.9
[2022-08-26 17:29] VITALS: BP 138/89; O2SAT 99
== END 2022-08-26 16:04 | disposition home or self-care (01) ==
LOC: ER 13:31
DX: S43.492A Other sprain of left shoulder joint, initial encounter (principal); F17.210 Nicotine dependence, cigarettes, uncomplicated; Z88.1 Allergy status to other antibiotic agents; Z88.5 Allergy status to narcotic agent; Z88.6 Allergy status to analgesic agent; Z88.0 Allergy status to penicillin
CPT/HCPCS: 73030; J1100

== ENCOUNTER 2022-09-19 14:24 | Emergency (ER) | payer OTHER ==
--- OUTSIDE RECORDS SUMMARY | 2022-09-19 14:27 | XMS REPORT | Continuity of Care Document ---
:1975 Author Organization [facility] t Address [address] [facility] 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 Problems This patient has [...] Goal Plan of Care Note [code = 43890-3] Goal Plan of Care Note [code = 39648-5] Goal Plan of Care Note [code = 54652-1] Goal Plan of Care Note [code = 55473-4] Goal Plan of Care Note [code = 52459-3] Goal Plan of Care Note [code = 38064-4] Goal Plan of Care Note [code = 72625-7] Goal Plan of Care Note [code = 18045-4] Encounters Start End Encounter Admission Attending Care Care Encounter Source Date/Time Date/Time Type Type Clinicians Facility Department ID 2022-09-11 2022-09-11 Outpatient SFA SFA [id number] Jose 09:32:39 09:32:39 [id number] F Tacos 2022-07-15 2022-07-15 Outpatient GRACIE GODDARD [id number] Gracie 08:30:00 08:30:00 KAZ garcia 2022-04-23 2022-04-23 Outpatient SFA SFA [id number] Jose 11:21:09 11:21:09 [id number] F Tacos 2022-03-23 2022-03-23 Outpatient SFA SFA [id number] Jose 15:17:41 15:17:41 [id number] F Tacos 2022-03-23 2022-03-23 Outpatient [id number] 00:00:00 00:00:00 Visit ccd6-43d4 [id number] -[id number] 2022-03-17 Outpatient [facility] [id number] Jose 08:57:25 08:57:25 [id number] F Tacos 2022-03-12 2022-03-12 Outpatient [facility] [id number] Jose 09:46:16 09:46:16 [id number] F Tacos Results Test Description Test Time [...] K/UL ABS NUCLEATED RBCS (test code = 72682) 0.00 K/UL CBC W/AUTO [id number] 00:00:00 Test Item Value Reference Range Interpretation [...] NUCLEATED RBCS (test code = 0.00 K/UL 85810) CBC W/AUTO [id number] 00:00:00 Test Item Value Reference Range Interpretation [...] NUCLEATED RBCS (test code = 0.00 K/UL 69675) HEMOGLOBIN [id number] 00:00:00 Test Item Value Reference Range Interpretation Comments HEMOGLOBIN A1c (test code = 78361) 5.5 % HEMOGLOBIN [id number] 00:00:00 Test Item Value Reference Range Interpretation Comments HEMOGLOBIN A1c (test code = 77521) 5.5 % HEMOGLOBIN [id number] 00:00:00 Test Item Value Reference Range Interpretation Comments HEMOGLOBIN A1c (test code = 44950) 5.5 % LIPID [id number] 00:00:00 Test Item Value Reference Range Interpretation Comments CHOLESTEROL (test code = 2210) 262 MG/DL TRIGLYCERIDES (test code = 2232) 196 MG/DL HDL CHOLESTEROL (test code = 2220) 36 MG/DL CALC LDL CHOL (test code = 2237) 188 MG/DL RISK RATIO LDL/HDL (test code = 5.22 RATIO 2238) LIPID [id number] 00:00:00 Test Item Value Reference Range Interpretation Comments CHOLESTEROL (test code = 2210) 262 MG/DL TRIGLYCERIDES (test code = 2232) 196 MG/DL HDL CHOLESTEROL (test code = 2220) 36 MG/DL CALC LDL CHOL (test code = 2237) 188 MG/DL RISK RATIO LDL/HDL (test code = 5.22 RATIO 2238) COMPREHENSIVE METABOLIC [id number] 00:00:00 Test Item Value Reference Range Interpretation Comments GLUCOSE (test code = 2217) 92 MG/DL BUN (test code = 2208) 11 MG/DL CREATININE (test code = 2214) 0.86 MG/DL eGFR (2020 CKD-EPI) (test code 85 ML/MIN/1.73 = 13890) CALC BUN/CREAT (test code = 13 RATIO [...] code = 2219) 16 U/L COMPREHENSIVE METABOLIC [id number] 00:00:00 Test Item Value Reference Range Interpretation Comments GLUCOSE (test code = 2217) 92 MG/DL BUN (test code = 2208) 11 MG/DL CREATININE (test code = 2214) 0.86 MG/DL eGFR (2020 CKD-EPI) (test code 85 ML/MIN/1.73 = 69764) CALC BUN/CREAT (test code = 13 RATIO [...] code = 2219) 16 U/L TSH, THIRD [id number] 00:00:00 Test Item Value Reference Range Interpretation Comments TSH, THIRD GENERATION (test code 1.150 UIU/ML = 2821) TSH, THIRD [id number] 00:00:00 Test Item Value Reference Range Interpretation Comments TSH, THIRD GENERATION (test code 1.150 UIU/ML = 2821) TSH, THIRD [id number] 00:00:00 Test Item Value Reference Range Interpretation Comments TSH, THIRD GENERATION (test code 1.150 UIU/ML = 2821)
--- NOTE | 2022-09-19 15:34 | EDPHYS ---
Physician Documentation [facility] Name: Dayami Pisano Age: 47 yrs Sex: Female : 1975 Arrival Date: 09/19/2022 Time: 14:24 Bed 10 Private MD: ED Physician Nick Corrigan HPI: 09/19 15:25 This 47 yrs old Female presents to ER via Ambulatory with complaints of fistula leaking.rn 15:25 Onset: The symptoms/episode began/occurred 1 month(s) ago. Modifying factors: The rn symptoms are alleviated by nothing, The symptoms are aggravated by bowel movement, sitting position. The patient has experienced similar episodes in the past. The patient has not recently seen a physician. Pt reports has known rectal fistulas x 3 since 2019, sequela of gangrenous infection at the time. REports gets intermittent leakage but worse over last month. No fever. NO pain or tenderness. Came in for evaluation. . Historical: - Allergies: 14:47 Augmentin; bp 14:47 Bactrim; bp 14:47 codeine sulfate; bp 14:47 Ibuprofen; bp 14:47 Morphine; bp 14:47 NSAIDS; bp 14:47 PENICILLINS; bp - PMHx: 14:47 Bipolar disorder; depressive disorder; Endometrosis; Hypertensive disorder; PTSD; Sleep bp Apnea; - PSHx: 14:47 hysterectomy; bp - Immunization history:: Adult Immunizations up to date. - Social history:: Smoking status: Patient denies any tobacco usage or history of. - Family history:: not pertinent. - Hospitalizations: : No recent hospitalization is reported. ROS: 15:25 Constitutional: Negative for fever, chills, and weight loss, Cardiovascular: Negative rn for chest pain, palpitations, and edema, Respiratory: Negative for shortness of breath, cough, wheezing, and pleuritic chest pain, Abdomen/GI: + anal leakage Exam: 15:25 Constitutional: This is a well developed, well nourished patient who is awake, alert, rn and in no acute distress. Cardiovascular: Regular rate and rhythm. No pulse deficits. Abdomen/GI: Soft, non-tender, + erythema to perianal area, no fluctuance, no drainage noted, no tenderness in perirectal region. Vital Signs: 14:43 BP 132 / 79; Pulse 65; Resp 16; Temp 98; Pulse Ox 98% ; bp MDM: 14:37 Patient medically screened. rn 15:25 Differential diagnosis: hemorrhoids, fissure, abscess, fistula. Data reviewed: vital rn signs, nurses notes, and as a result, I will discharge patient. Counseling: I had a detailed discussion with the patient and/or guardian regarding: the historical points, exam findings, and any diagnostic results supporting the discharge/admit diagnosis, the need for outpatient follow up, to return to the emergency department if symptoms worsen or persist or if there are any questions or concerns that arise at home. ED course: NO evidence of infection at this time, patient here for leakage from chronic fistulas, will dc home with abx and directed to f/u with colorectal surgeon. Return precautions given and understood.. 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
--- NOTE | 2022-09-19 15:34 | ER ---
Nurse's Notes [facility] Name: Dayami Pisano Age: 47 yrs Sex: Female : 1975 Arrival Date: 09/19/2022 Time: 14:24 Bed 10 Private MD: Diagnosis: Fistula of intestine Presentation: 09/19 14:43 Chief complaint: Patient states: I'VE BEEN IN REHAB AND NOW MY RECTAL FISTULA IS bp LEAKING. Coronavirus screen: At this time, the client does not indicate any symptoms associated with coronavirus-19. Ebola Screen: No symptoms or risks identified at this time. Initial Sepsis Screen: Does the patient meet any 2 criteria? No. Patient's initial sepsis screen is negative. Does the patient have a suspected source of infection? No. Patient's initial sepsis screen is negative. Risk Assessment: Do you want to hurt yourself or someone else? Patient reports no desire to harm self or others. Onset of symptoms is unknown. 14:43 Method Of Arrival: Ambulatory bp 14:43 Acuity: VERONICA 3 bp Triage Assessment: 14:47 General: Appears uncomfortable, Behavior is cooperative, appropriate for age. Pain: bp Complains of pain in buttocks. EENT: No deficits noted. Neuro: No deficits noted. Cardiovascular: No deficits noted. Respiratory: No deficits noted. GI: Reports RECTAL LEAKAGE. : No signs and/or symptoms were reported regarding the genitourinary system. Derm: No deficits noted. Musculoskeletal: No deficits noted. Historical: - Allergies: 14:47 Augmentin; bp 14:47 Bactrim; bp 14:47 codeine sulfate; bp 14:47 Ibuprofen; bp 14:47 Morphine; bp 14:47 NSAIDS; bp 14:47 PENICILLINS; bp - PMHx: 14:47 Bipolar disorder; depressive disorder; Endometrosis; Hypertensive disorder; PTSD; Sleep bp Apnea; - PSHx: 14:47 hysterectomy; bp - Immunization history:: Adult Immunizations up to date. - Social history:: Smoking status: Patient denies any tobacco usage or history of. - Family history:: not pertinent. - Hospitalizations: : No recent hospitalization is reported. Screenin:15 [facility] ED Fall Risk Assessment (Adult) History of falling in the last 3 months, mb9 including since admission No falls in past 3 months (0 pts) Confusion or Disorientation No (0 pts) Intoxicated or Sedated No (0 pts) Impaired Gait No (0 pts) Mobility Assist Device Used No (0 pt) Altered Elimination No (0 pt) Score/Fall Risk Level 0 - 2 = Low Risk Oriented to surroundings, Maintained a safe environment, Educated pt \T\ family on fall prevention, incl call for assistance when getting out of bed. Abuse screen: Denies threats or abuse. Nutritional screening: No deficits noted. Tuberculosis screening: No symptoms or risk factors identified. Assessment: 15:15 Reassessment: see triage assessment. mb9 Vital Signs: 14:43 BP 132 / 79; Pulse 65; Resp 16; Temp 98; Pulse Ox 98% ; bp ED Course: 14:26 Patient arrived in ED. ts1 14:37 Nick Corrigan MD is Attending Physician. rn 14:47 Triage completed. bp 14:47 Arm band placed on. bp 15:15 Placed in gown. Bed in low position. Call light in reach. Side rails up X 1. Client mb9 placed on continuous cardiac and pulse oximetry monitoring. NIBP monitoring applied. 15:16 Served as a de icer finisher during rectal exam. mb9 15:16 Patient did not have IV access during this emergency room visit. mb9 Administered Medications: No medications were administered Medication: 15:15 VIS not applicable for this client. mb9 Outcome: 15:33 Discharge ordered by . rn 16:07 Patient left the ED. aa5 Signatures: Nick Corrigan MD MD rn Calderon, Audri, RN RN aa5 Kike Vaughan RN RN Agustina Elmore RN RN mb9 Gladys Harrington PAS PAS ts1
[2022-09-19 16:11] VITALS: BP 132/79; TEMP 98; O2SAT 98
== END 2022-09-19 16:07 | disposition home or self-care (01) ==
LOC: ER 14:24
DX: K63.2 Fistula of intestine (principal); Z88.0 Allergy status to penicillin; Z88.1 Allergy status to other antibiotic agents; Z88.5 Allergy status to narcotic agent; Z88.6 Allergy status to analgesic agent
CPT/HCPCS: 99282

== ENCOUNTER 2022-10-08 07:59 | Emergency (ER) | payer OTHER ==
--- OUTSIDE RECORDS SUMMARY | 2022-10-08 08:03 | XMS REPORT | Continuity of Care Document ---
:1975 Author Organization [facility] t Address [address] [facility] [address] [place] [address] Care Team Providers Name Role Phone Suly Maldonado Primary Care Physician [phone] KAZ GODDARD Attending Clinician Unavailable Payers Payer Name Policy Type Policy Number Effective Date Expiration Date Marce fuentes [employer] MP CVS 9 [id number] 2022 00:00:00 SILVER: HMO [employer] 94 ON STAND Problems This patient has [...] Goal Plan of Care Note [code = 09925-9] Goal Plan of Care Note [code = 62614-9] Goal Plan of Care Note [code = 45182-0] Goal Plan of Care Note [code = 64901-4] Goal Plan of Care Note [code = 08474-4] Goal Plan of Care Note [code = 97545-0] Goal Plan of Care Note [code = 67688-7] Goal Plan of Care Note [code = 14278-4] Encounters Start End Encounter Admission Attending Care Care Encounter Source Date/Time Date/Time Type Type Clinicians Facility Department ID 2022-09-30 2022-09-30 Outpatient SFA SFA Jose 09:45:25 09:45:25 [id number] F Tacos 2022-09-23 2022-09-23 Outpatient SFA SFA [id number] Jose 15:43:47 15:43:47 [id number] F Tacos 2022-09-11 2022-09-11 Outpatient SFA SFA [id number] Jose 09:32:39 09:32:39 [id number] F Tacos 2022-07-15 2022-07-15 Outpatient GRACIE GODDARD [id number] Gracie 08:30:00 08:30:00 KAZ Prieto jose 2022-04-23 2022-04-23 Outpatient [facility] Jose 11:21:09 11:21:09 [id number] Nathan Balderrama 2022-03-23 2022-03-23 Outpatient [facility] Jose 15:17:41 15:17:41 [id number] F Tacos 2022-03-23 2022-03-23 Outpatient [id number] 00:00:00 00:00:00 Visit [id number] 2022-03-17 Outpatient [facility] Jose 08:57:25 08:57:25 [id number] F Tacos 2022-03-12 2022-03-12 Outpatient [facility] Jose 09:46:16 09:46:16 [id number] F Tacos Results Test Description Test Time [...] K/UL ABS NUCLEATED RBCS (test code = 93858) 0.00 K/UL CBC W/AUTO [id number] 00:00:00 Test Item Value Reference Range Interpretation [...] NUCLEATED RBCS (test code = 0.00 K/UL 21056) CBC W/AUTO [id number] 00:00:00 Test Item Value Reference Range Interpretation [...] NUCLEATED RBCS (test code = 0.00 K/UL 55015) HEMOGLOBIN [id number] 00:00:00 Test Item Value Reference Range Interpretation Comments HEMOGLOBIN A1c (test code = 49091) 5.5 % HEMOGLOBIN [id number] 00:00:00 Test Item Value Reference Range Interpretation Comments HEMOGLOBIN A1c (test code = 00221) 5.5 % HEMOGLOBIN [id number] 00:00:00 Test Item Value Reference Range Interpretation Comments HEMOGLOBIN A1c (test code = 01742) 5.5 % LIPID [id number] 00:00:00 Test Item Value Reference Range Interpretation Comments CHOLESTEROL (test code = 2210) 262 MG/DL TRIGLYCERIDES (test code = 2232) 196 MG/DL HDL CHOLESTEROL (test code = 2220) 36 MG/DL CALC LDL CHOL (test code = 2237) 188 MG/DL RISK RATIO LDL/HDL (test code = 5.22 RATIO 2238) LIPID [id number] 00:00:00 Test Item Value Reference Range Interpretation Comments CHOLESTEROL (test code = 2210) 262 MG/DL TRIGLYCERIDES (test code = 2232) 196 MG/DL HDL CHOLESTEROL (test code = 2220) 36 MG/DL CALC LDL CHOL (test code = 2237) 188 MG/DL RISK RATIO LDL/HDL (test code = 5.22 RATIO 2238) COMPREHENSIVE METABOLIC [id number] 00:00:00 Test Item Value Reference Range Interpretation Comments GLUCOSE (test code = 2217) 92 MG/DL BUN (test code = 2208) 11 MG/DL CREATININE (test code = 2214) 0.86 MG/DL eGFR (2020 CKD-EPI) (test code 85 ML/MIN/1.73 = 82192) CALC BUN/CREAT (test code = 13 RATIO [...] code = 2219) 16 U/L COMPREHENSIVE METABOLIC [id number] 00:00:00 Test Item Value Reference Range Interpretation Comments GLUCOSE (test code = 2217) 92 MG/DL BUN (test code = 2208) 11 MG/DL CREATININE (test code = 2214) 0.86 MG/DL eGFR (2020 CKD-EPI) (test code 85 ML/MIN/1.73 = 33269) CALC BUN/CREAT (test code = 13 RATIO 2235) SODIUM (test code = 2231) 141 MEQ/L POTASSIUM (test code = 2228) 4.4 MEQ/L CHLORIDE (test code = 2215) 107 MEQ/L CARBON DIOXIDE (test code = 22 MEQ/L 220) CALCIUM (test code = 2209) 10.0 MG/DL PROTEIN, TOTAL (test code = 7.2 G/DL 222) ALBUMIN (test code = 2201) 4.3 G/DL CALC GLOBULIN (test code = 2.9 G/DL 2240) CALC A/G RATIO (test code = 1.5 RATIO 2233) BILIRUBIN, TOTAL (test code = 0.3 MG/DL 2206) ALKALINE PHOSPHATASE (test 101 U/L code = 220) AST (test code = 2218) 16 U/L ALT (test code = 2219) 16 U/L TSH, THIRD [id number] 00:00:00 Test Item Value Reference Range Interpretation Comments TSH, THIRD GENERATION (test code 1.150 UIU/ML = 2821) TSH, THIRD [id number] 00:00:00 Test Item Value Reference Range Interpretation Comments TSH, THIRD GENERATION (test code 1.150 UIU/ML = 2821) TSH, THIRD [id number] 00:00:00 Test Item Value Reference Range Interpretation Comments TSH, THIRD GENERATION (test code 1.150 UIU/ML = 2821)
[2022-10-08] MEDS ORDERED: ACETAMINOPHEN 500 MG TAB ONE (08:31)
--- NOTE | 2022-10-08 08:34 | RAD REPORT ---
EXAM DESCRIPTION: CT - CTHCSPWOC - 10/08/2022 8:25 am CLINICAL HISTORY: Trauma, head and neck injury. WREN, CHI fall COMPARISON: <Comparisons> TECHNIQUE: Axial 5 mm thick images of the head were obtained. Axial 2 mm thick images of the cervical spine were obtained with sagittal and coronal reconstruction images generated and reviewed. All CT scans are performed using dose optimization technique as appropriate and may include automated exposure control or mA/KV adjustment according to patient size. FINDINGS: CT HEAD WITHOUT CONTRAST: No acute hemorrhage, hydrocephalus or extra-axial collection is identified.No areas of brain edema or midline shift. The paranasal sinuses and mastoids are clear.The calvarium is intact. CT CERVICAL SPINE WITHOUT CONTRAST: No fracture or subluxation.No prevertebral soft tissues swelling is identified. Mildly enlarged bilat eral jugular chain lymph nodes seen. These are nonspecific. IMPRESSION: No acute intracranial or cervical spine findings.
--- NOTE | 2022-10-08 08:44 | ER ---
Nurse's Notes [facility] Name: Dayami Pisano Age: 47 yrs Sex: Female : 1975 Arrival Date: 10/08/2022 Time: 07:59 Bed 14 Private MD: Diagnosis: Concussion without loss of consciousness;Sprain of ligaments of cervical spine, initial encounter Presentation: 10/08 08:01 Chief complaint: EMS states: SENT FROM [facility] FOR FALL IN SHOWER LAST PM, NOW bp WITH WREN. Coronavirus screen: At this time, the client does not indicate any symptoms associated with coronavirus-19. Ebola Screen: No symptoms or risks identified at this time. Initial Sepsis Screen: Does the patient meet any 2 criteria? No. Patient's initial sepsis screen is negative. Does the patient have a suspected source of infection? No. Patient's initial sepsis screen is negative. Risk Assessment: Do you want to hurt yourself or someone else? Patient reports no desire to harm self or others. Onset of symptoms was October 07, 2022 at 18:00. 08:01 Method Of Arrival: EMS: [facility] bp 08:01 Acuity: VERONICA 3 bp Triage Assessment: 08:01 General: Appears in no apparent distress. comfortable, Behavior is calm, cooperative, bp appropriate for age. Pain: Complains of pain in head. EENT: No deficits noted. Neuro: Reports headache. Cardiovascular: No deficits noted. Respiratory: No deficits noted. GI: No signs and/or symptoms were reported involving the gastrointestinal system. : No signs and/or symptoms were reported regarding the genitourinary system. Derm: No deficits noted. Musculoskeletal: No deficits noted. Historical: - Allergies: 08:01 Augmentin; bp 08:01 Bactrim; bp 08:01 codeine sulfate; bp 08:01 Ibuprofen; bp 08:01 Morphine; bp 08:01 NSAIDS; bp 08:01 PENICILLINS; bp - PMHx: 08:01 Bipolar disorder; depressive disorder; Endometrosis; Hypertensive disorder; PTSD; Sleep bp Apnea; - PSHx: 08:01 hysterectomy; bp - Immunization history:: Adult Immunizations up to date. - Social history:: Smoking status: unknown. Screenin:03 [facility] ED Fall Risk Assessment (Adult) History of falling in the last 3 months, bp including since admission No falls in past 3 months (0 pts). Abuse screen: Denies threats or abuse. Denies injuries from another. Nutritional screening: No deficits noted. Tuberculosis screening: No symptoms or risk factors identified. Assessment: 08:03 General: SEE TRIAGE NOTE. bp 08:50 Reassessment: [facility] CONTACTED FOR DC. bp Vital Signs: 08:01 BP 100 / 63; Pulse 68; Resp 16; Temp 98; Pulse Ox 96% ; bp 08:50 BP 116 / 84; Pulse 64; Resp 16; Pulse Ox 97% ; bp ED Course: 08:00 Patient arrived in ED. bp 08:01 Arm band placed on. bp 08:02 Tirso Michelle PA is PHCP. [facility] 08:02 Zane Lakhani MD is Attending Physician. [facility] 08:02 Triage completed. bp 08:03 Patient has correct armband on for positive identification. Bed in low position. Call bp light in reach. Side rails up X2. 08:10 Kike Vaughan, RN is Primary Nurse. bp 08:27 Head C Spine Mpr Wo Con In Process Unspecified. EDMS 08:51 No provider procedures requiring assistance completed. Patient did not have IV access bp during this emergency room visit. Administered Medications: 08:27 Drug: Acetaminophen PO 1000 mg Route: PO; bp 08:56 Follow up: Response: No adverse reaction bp Medication: 08:03 VIS not applicable for this client. bp Outcome: 08:44 Discharge ordered by jr11 08:56 Discharged to Rehab Facility bp 08:56 Condition: stable 08:56 Discharge instructions given to patient, Instructed on discharge instructions, follow up and referral plans. Demonstrated understanding of instructions, follow-up care. 08:57 Patient left the ED. bp Signatures: Dispatcher [employer] EDMS Tirso Michelle PA PA jmm Peltier, Brian, RN RN bp Zane Lakhani MD MD jr11
--- NOTE | 2022-10-08 08:44 | EDPHYS ---
Physician Documentation [facility] Name: Dayami Pisano Age: 47 yrs Sex: Female : 1975 Arrival Date: 10/08/2022 Time: 07:59 Bed 14 Private MD: ED Physician Zane Lakhani HPI: 10/08 08:26 This 47 yrs old Female presents to ER via EMS with complaints of Fall Injury. jr11 08:26 Details of fall: The patient fell and struck tile. Onset: The symptoms/episode jr11 began/occurred last night. Associated injuries: The patient sustained injury to the head, abrasion, tenderness. Severity of symptoms: At their worst the symptoms were moderate, in the emergency department the symptoms are unchanged. Pt states she slid down . Historical: - Allergies: 08:01 Augmentin; bp 08:01 Bactrim; bp 08:01 codeine sulfate; bp 08:01 Ibuprofen; bp 08:01 Morphine; bp 08:01 NSAIDS; bp 08:01 PENICILLINS; bp - PMHx: 08:01 Bipolar disorder; depressive disorder; Endometrosis; Hypertensive disorder; PTSD; Sleep bp Apnea; - PSHx: 08:01 hysterectomy; bp - Immunization history:: Adult Immunizations up to date. - Social history:: Smoking status: unknown. ROS: 08:26 All other systems are negative. jr11 Exam: 08:26 Constitutional: This is a well developed, well nourished patient who is awake, alert, jr11 and in no acute distress. Head/Face: Normocephalic, atraumatic. Eyes: Extra-ocular motions intact. Lids and lashes normal. Conjunctiva and sclera are non-icteric and not injected. Cornea within normal limits. Periorbital areas with no swelling, redness, or edema. ENT: Nares patent. No nasal discharge, no septal abnormalities noted. Oropharynx with no redness, swelling, or masses, exudates, or evidence of obstruction, uvula midline. Mucous membranes moist. Neck: Trachea midline, no thyromegaly or masses palpated, and no cervical lymphadenopathy. Supple, full range of motion without nuchal rigidity, or vertebral point tenderness. No Meningismus. Chest/axilla: Normal chest wall appearance and motion. Nontender with no deformity. No lesions are appreciated. Cardiovascular: Regular rate and rhythm with a normal S1 and S2. No gallops, murmurs, or rubs. Normal PMI, no JVD. No pulse deficits. Respiratory: Lungs have equal breath sounds bilaterally, clear to auscultation and percussion. No rales, rhonchi or wheezes noted. No increased work of breathing, no retractions or nasal flaring. Abdomen/GI: Soft, non-tender, with normal bowel sounds. No distension or tympany. No guarding or rebound. No evidence of tenderness throughout. Back: No spinal tenderness. No costovertebral tenderness. Full range of motion. Skin: Warm, dry with normal turgor. Normal color with no rashes, no lesions, and no evidence of cellulitis. MS/ Extremity: Pulses equal, no cyanosis. Neurovascular intact. Full, normal range of motion. Neuro: Awake and alert, GCS 15, oriented to person, place, time, and situation. No gross motor or sensory deficits. Vital Signs: 08:01 BP 100 / 63; Pulse 68; Resp 16; Temp 98; Pulse Ox 96% ; bp 08:50 BP 116 / 84; Pulse 64; Resp 16; Pulse Ox 97% ; bp MDM: 08:08 Patient medically screened. 11 08:26 Differential diagnosis: abrasion, closed head injury, contusion, sprain, strain. Data 11 reviewed: vital signs, nurses notes. 08:39 Special discussion: Based on the patient's history, exam and DX evaluation, there is no [facility] indication for emergent intervention or inpatient [place]. It is understood by the patient/guardian that if the SXs persist or worsen they need to return immediately for re-evaluation. I discussed with the patient/guardian in detail that at this point there is no indication for admission to the hospital. It is understood, however, that if the symptoms persist or worsen the patient needs to return immediately for re-evaluation. ED course: CT interpreted by me, no bleed. 10/08 08:24 Order name: Head C Spine Mpr Wo Con; Complete Time: 08:36 EDMS Administered Medications: 08:27 Drug: Acetaminophen PO 1000 mg Route: PO; bp 08:56 Follow up: Response: No adverse reaction bp Disposition Summary: 10/08/22 08:44 Discharge Ordered Location: Home [facility] Condition: Stable jr11 Diagnosis - Concussion without loss of consciousness jr11 - Sprain of ligaments of cervical spine, initial encounter jr11 Discharge Instructions: - Discharge Summary Sheet jr11 - Concussion, Adult jr11 - Cervical Sprain jr11 Forms: - Medication Reconciliation Form jr11 - Thank You Letter jr11 - Antibiotic Education jr11 - Prescription Opioid Use jr11 - [email or web address] jr11 Signatures: Dispatcher [employer] EDMS Kike Vaughan, TED RN Zane Gomez MD MD jr11 Corrections: (The following items were deleted from the chart) 08:24 08:11 Head Brain Wo Cont+CT.RAD.BRZ ordered. EDMS EDMS
[2022-10-08 09:07] VITALS: TEMP 98
[2022-10-08 09:08] VITALS: BP 116/84; O2SAT 97
== END 2022-10-08 08:57 | disposition home or self-care (01) ==
LOC: ER 07:59
DX: S06.0X0A Concussion without loss of consciousness, initial encounter (principal); S13.4XXA Sprain of ligaments of cervical spine, initial encounter; Z88.0 Allergy status to penicillin; Z88.1 Allergy status to other antibiotic agents; Z88.5 Allergy status to narcotic agent; Z88.6 Allergy status to analgesic agent
CPT/HCPCS: 70450; 72125; 99284